=== PATIENT | male | born 1950 | race Caucasian/White ===

== ENCOUNTER 2016-11-23 09:00 | Inpatient (IN) | payer MEDICARE, BC ==
[~2016-11-23] VITALS: Ht 180.3 cm; Wt 105.9 kg
[2016-11-23] VITALS (22 sets, daily range): BP systolic 143–185; BP diastolic 66–84
[~2016-11-23 09:00] MED LIST: ALLO300T2 PO; CLOP75TA16; EVOL420W SQ; LEVO200T8 PO; OLME20TA14 PO; POTA10TA11 PO; ROSU5TAB PO; SUCR1TAB PO; TRIA1TAB94 PO; VIAG100 PO
[2016-11-23] MEDS ORDERED: AMLO10TA80 PO (09:34)
[2016-11-23] MEDS ORDERED: ASPI-1159 PO (09:34)
[2016-11-23] MEDS ORDERED: IPRATROPIUM/ALBUTEROL 0.5-3(2.5)MG/3ML NEB HHN PRN (10:45)
[2016-11-23] MEDS ORDERED: IODIXANOL 320MG/ML 100 ML BOTTLE IV ONE (11:11)
[2016-11-23] MEDS ORDERED: LIDOCAINE HCL 1% 20ML VIAL (Pyxis) INJ ONE (11:12)
[2016-11-23] MEDS ORDERED: MIDAZOLAM HCL 2 MG/2 ML VIAL ONE ×4 (11:23→12:24)
[2016-11-23] MEDS ORDERED: FENTANYL CITRATE/PF 50MCG/ML 2ML VIAL ONE ×2 (11:23→12:13)
[2016-11-23] MEDS ORDERED: ATROPINE SULFATE 0.1MG/ML 10ML DISP.SYRIN ONE (11:28)
[2016-11-23] MEDS ORDERED: HEPARIN SODIUM 1,000 UNIT/1ML VIAL IV ONE ×2 (12:14→12:21)
[2016-11-23] MEDS ORDERED: IOVERSOL 240MG/ML 100ML BOTTLE IV ONE (12:24)
[2016-11-23] MEDS ORDERED: CLOPIDOGREL 75MG TABLET ONE (12:37)
[2016-11-23] MEDS ORDERED: ASPIRIN 325MG TABLET ONE (12:37)
[2016-11-23] MEDS ORDERED: SUCRALFATE 1G TABLET PO SCH (13:00)
[2016-11-23] MEDS ORDERED: ZOLPIDEM TARTRATE 5MG TABLET PO PRN (13:00)
[2016-11-23] MEDS ORDERED: ACETAMINOPHEN 650MG/20.3ML UDC PO PRN (13:00)
[2016-11-23] MEDS ORDERED: AMLODIPINE 10MG TABLET PO NR (15:15)
[2016-11-23] MEDS: SUCRALFATE 1G TABLET PO SCH ×2 (17:00→21:39)
[2016-11-23] MEDS ORDERED: LOSARTAN POTASSIUM 50 MG TABLET PO NR (18:00)
[2016-11-23] MEDS ORDERED: BUDESONIDE 0.5MG/2ML NEB HHN SCH (18:00)
[2016-11-23] MEDS: IPRATROPIUM/ALBUTEROL 0.5-3(2.5)MG/3ML NEB HHN SCH (21:18)
[2016-11-24] VITALS (10 sets, daily range): BP systolic 125–167; BP diastolic 56–82
[2016-11-24] MEDS: IPRATROPIUM/ALBUTEROL 0.5-3(2.5)MG/3ML NEB HHN SCH (01:28)
[2016-11-24] MEDS: SUCRALFATE 1G TABLET PO SCH (06:13)
[2016-11-24 07:00] LABS: BASOPHILS % 0.8 % (0.0-2.0); EOSINOPHILS % 2.4 % (0.0-5.0); HEMATOCRIT. 40.1 % (42.0-52.0); HEMOGLOBIN. 13.7 g/dL (14.0-18.0); LYMPHOCYTES % 18.9 % (20.0-50.0); MEAN CORPUSCULAR HEMOGLOBIN 30.5 pg (28.0-32.0); MEAN CORPUSCULAR VOLUME 89.4 fL (80.0-94.0); MONOCYTES % 13.1 % (2.0-8.0); NEUTROPHILS % 64.8 % (40.0-76.0); PLATELET 195 x1000/uL (130-400); RED BLOOD CELL COUNT 4.49 mill/uL (4.7-6.1); RED CELL DISTRIBUTION WIDTH 15.3 % (11.6-14.6)
[2016-11-24] MEDS ORDERED: LEVOTHYROXINE SODIUM 200MCG TABLET PO SCH (07:00)
[2016-11-24 07:33] LABS: CARBON DIOXIDE 23 mEq/L (21-32); CHLORIDE 111 mEq/L (98-107)
[2016-11-24] MEDS ORDERED: AMLODIPINE 10MG TABLET PO SCH (09:00)
[2016-11-24] MEDS ORDERED: ALLOPURINOL 300 MG TABLET PO SCH (09:00)
[2016-11-24] MEDS ORDERED: CLOPIDOGREL 75MG TABLET PO SCH (09:00)
[2016-11-24] MEDS ORDERED: ASPIRIN 81MG EC TABLET PO SCH (09:00)
[2016-11-24] MEDS ORDERED: LOSARTAN POTASSIUM 100 MG TABLET PO SCH (09:00)
== END 2016-11-24 09:45 | disposition home or self-care (01) | DRG 247 ==
LOC: CCL 09:00 → 3WST 09:01
PROVIDERS: ADMIT Specialist; ATTEND Specialist
PROC: 4A023N7 Measurement of Cardiac Sampling and Pressure, Left Heart, Percutaneous Approach (ICD-10-PCS; principal; 2016-11-23)
PROC: 027034Z Dilation of Coronary Artery, One Artery with Drug-eluting Intraluminal Device, Percutaneous Approach (ICD-10-PCS; 2016-11-23)
PROC: B2111ZZ Fluoroscopy of Multiple Coronary Arteries using Low Osmolar Contrast (ICD-10-PCS; 2016-11-23)
PROC: B2181ZZ Fluoroscopy of Left Internal Mammary Bypass Graft using Low Osmolar Contrast (ICD-10-PCS; 2016-11-23)
PROC: B2121ZZ Fluoroscopy of Single Coronary Artery Bypass Graft using Low Osmolar Contrast (ICD-10-PCS; 2016-11-23)
DX: I25.110 Atherosclerotic heart disease of native coronary artery with unstable angina pectoris (principal); I11.0 Hypertensive heart disease with heart failure; I50.30 Unspecified diastolic (congestive) heart failure; E03.9 Hypothyroidism, unspecified; E78.5 Hyperlipidemia, unspecified; G47.33 Obstructive sleep apnea (adult) (pediatric); I35.8 Other nonrheumatic aortic valve disorders; I73.9 Peripheral vascular disease, unspecified; J45.909 Unspecified asthma, uncomplicated; K21.9 Gastro-esophageal reflux disease without esophagitis; E66.09 Other obesity due to excess calories; M10.9 Gout, unspecified; I25.2 Old myocardial infarction; Z79.02 Long term (current) use of antithrombotics/antiplatelets; Z95.1 Presence of aortocoronary bypass graft; Z95.5 Presence of coronary angioplasty implant and graft; Z90.49 Acquired absence of other specified parts of digestive tract; Z88.0 Allergy status to penicillin; Z68.32 Body mass index [BMI] 32.0-32.9, adult; Z71.3 Dietary counseling and surveillance; Z82.49 Family history of ischemic heart disease and other diseases of the circulatory system
CPT/HCPCS: 36415; 80048; 85025; 85347; 92928; 93005; 93454; 93459; C1760; C1769; C1887; C1893; J0461; J1644; J2250; J3010; J3490; J7620; J7626; Q9967

== ENCOUNTER → 2017-04-04 | Outpatient (CLI) | payer MEDICARE, BC ==
[~2017-04-04] MED LIST changes: +AMLO10TA80 PO; +ASPI-1159 PO; +BENZ-16 PO; +LOSA50TA20 PO; -OLME20TA14 PO; +PANT40TA4 PO
== END | disposition home or self-care (01) ==
LOC: US 07:51
PROVIDERS: ATTEND Internal Medicine Critical Care Medicine
DX: E05.90 Thyrotoxicosis, unspecified without thyrotoxic crisis or storm (principal)
CPT/HCPCS: 76536

== ENCOUNTER 2017-06-29 01:49 | Emergency (ER) | payer MEDICARE, BC ==
[~2017-06-29] VITALS: Ht 180.3 cm; Wt 101.0 kg
[~2017-06-29 01:49] MED LIST changes: -BENZ-16 PO; -LOSA50TA20 PO; -PANT40TA4 PO
[2017-06-29 02:20] VITALS: BP 112/63
== END 2017-06-29 03:15 | disposition home or self-care (01) ==
LOC: ER 01:49
DX: R05 Cough (principal); I10 Essential (primary) hypertension; E78.00 Pure hypercholesterolemia, unspecified; Z79.82 Long term (current) use of aspirin; Z88.0 Allergy status to penicillin; Z95.1 Presence of aortocoronary bypass graft; Z96.659 Presence of unspecified artificial knee joint; Z87.01 Personal history of pneumonia (recurrent)
CPT/HCPCS: 71045; 99283

== ENCOUNTER 2017-12-13 08:16 | Day surgery (SDC) | payer MEDICARE, BC ==
[~2017-12-13 08:16] MED LIST changes: -AMLO10TA80 PO; +BENZ-16 PO; -EVOL420W SQ; +LOSA50TA20 PO; +PANT40TA4 PO; -TRIA1TAB94 PO
[2017-12-13] MEDS ORDERED: IODIXANOL 320MG/ML 100 ML BOTTLE IV ONE (10:31)
[2017-12-13] MEDS ORDERED: LIDOCAINE HCL 1% 20ML VIAL (Pyxis) INJ ONE (10:31)
[2017-12-13 10:50] LABS: CHLORIDE 109 mEq/L (98-107)
[2017-12-13] MEDS ORDERED: MIDAZOLAM HCL 5 MG/5 ML VIAL ONE (10:56)
[2017-12-13] MEDS ORDERED: FENTANYL CITRATE/PF 50MCG/ML 2ML VIAL ONE (10:56)
[2017-12-13] MEDS ORDERED: DIPHENHYDRAMINE 50MG/ML VIAL ONE (11:09)
[2017-12-13] MEDS ORDERED: ONDANSETRON HCL 4MG/2ML INJ IV PRN (12:30)
[2017-12-13] MEDS ORDERED: ACETAMINOPHEN 325MG TABLET PO PRN (12:30)
[2017-12-13] MEDS ORDERED: HEPARIN SODIUM 1,000 UNIT/1ML VIAL IV ONE (12:42)
[2017-12-13] MEDS ORDERED: NICARDIPINE 100MCG/ML 10ML VIAL (CATH LAB) IV ONE (13:14)
[2017-12-13] MEDS ORDERED: NITROGLYCERIN 50MCG/ML 10ML VIAL (CATH LAB) IV ONE (13:14)
== END 2017-12-13 18:00 | disposition home or self-care (01) ==
LOC: CCL 08:16
PROVIDERS: ATTEND Specialist
DX: I25.118 Atherosclerotic heart disease of native coronary artery with other forms of angina pectoris (principal); K21.9 Gastro-esophageal reflux disease without esophagitis; E78.5 Hyperlipidemia, unspecified; E03.9 Hypothyroidism, unspecified; I11.0 Hypertensive heart disease with heart failure; I50.30 Unspecified diastolic (congestive) heart failure; G47.33 Obstructive sleep apnea (adult) (pediatric); I25.2 Old myocardial infarction; E78.00 Pure hypercholesterolemia, unspecified; J45.909 Unspecified asthma, uncomplicated; Z95.5 Presence of coronary angioplasty implant and graft; Z96.659 Presence of unspecified artificial knee joint; Z95.1 Presence of aortocoronary bypass graft; Z79.899 Other long term (current) drug therapy; Z79.82 Long term (current) use of aspirin; Z88.0 Allergy status to penicillin
CPT/HCPCS: 36415; 80048; 93459; 99152; 99153; C1760; C1769; C1887; C1893; J1200; J1644; J2250; J3010; J3490; Q9967

== ENCOUNTER → 2017-12-19 | Outpatient (CLI) | payer MEDICARE, BC | END | disposition home or self-care (01) | LOC: CT 08:49 | PROVIDERS: ATTEND Internal Medicine Critical Care Medicine | DX: K76.0 Fatty (change of) liver, not elsewhere classified (principal); M51.36 Other intervertebral disc degeneration, lumbar region; Z90.49 Acquired absence of other specified parts of digestive tract | CPT/HCPCS: 74150; 76700 ==

== ENCOUNTER 2018-10-17 07:43 | Day surgery (SDC) | payer MEDICARE, BC ==
[~2018-10-17] VITALS: Ht 180.3 cm; Wt 104.3 kg
[~2018-10-17 07:43] MED LIST changes: -ASPI-1159 PO; +ASPI-1393 PO; -CLOP75TA16; +CLOP75TA4; -LOSA50TA20 PO; +LOSA50TA41 PO
[2018-10-17] MEDS ORDERED: NIAC500T13 MT (09:07)
[2018-10-17] MEDS ORDERED: NIFE60TA64 MT (09:07)
[2018-10-17] MEDS ORDERED: COR6 MT (09:07)
[2018-10-17] MEDS ORDERED: SULF1TAB48 PO (09:07)
[2018-10-17] MEDS ORDERED: MYCO500T MT (09:07)
[2018-10-17] MEDS ORDERED: LEVO175T7 MT (09:07)
[2018-10-17] MEDS ORDERED: LIDOCAINE HCL 1% 20ML VIAL (Pyxis) INJ ONE (11:33)
[2018-10-17] MEDS ORDERED: IODIXANOL 320MG/ML 100 ML BOTTLE IV ONE ×2 (11:34→12:30)
[2018-10-17] MEDS ORDERED: MIDAZOLAM HCL 2 MG/2 ML VIAL ONE ×2 (11:41→12:33)
[2018-10-17] MEDS ORDERED: FENTANYL CITRATE/PF 50MCG/ML 2ML VIAL ONE (11:41)
[2018-10-17] MEDS ORDERED: IOHEXOL-300 100 ML BOTTLE ONE (12:32)
[2018-10-17] MEDS ORDERED: PROTAMINE SULFATE 10MG/ML VIAL 5ML IV ONE (12:56)
[2018-10-17] MEDS ORDERED: HEPARIN SODIUM 1,000 UNIT/1ML VIAL IV ONE (13:00)
[2018-10-17] MEDS ORDERED: ATROPINE SULFATE 1MG/10ML SYR IV PRN (13:15)
[2018-10-17] MEDS ORDERED: ONDANSETRON HCL 4MG/2ML INJ IV PRN (13:15)
[2018-10-17] MEDS ORDERED: ACETAMINOPHEN 325MG TABLET PO PRN (13:15)
== END 2018-10-17 19:00 | disposition home or self-care (01) ==
LOC: CCL 07:43
PROVIDERS: ATTEND Specialist
DX: I25.118 Atherosclerotic heart disease of native coronary artery with other forms of angina pectoris (principal); E78.5 Hyperlipidemia, unspecified; I11.0 Hypertensive heart disease with heart failure; I50.9 Heart failure, unspecified; I25.2 Old myocardial infarction; I42.9 Cardiomyopathy, unspecified; Z79.899 Other long term (current) drug therapy; Z79.82 Long term (current) use of aspirin; Z88.0 Allergy status to penicillin; Z95.1 Presence of aortocoronary bypass graft; Z95.5 Presence of coronary angioplasty implant and graft; Z82.49 Family history of ischemic heart disease and other diseases of the circulatory system
CPT/HCPCS: 85347; 93459; 99152; 99153; C1760; C1769; C1887; C1893; J1644; J2250; J2720; J3010; J3490; Q9967; G0500

== ENCOUNTER 2019-07-24 11:10 | Inpatient (IN) | payer MEDICARE, BC ==
[2019-07-24] VITALS (15 sets, daily range): BP systolic 99–144; BP diastolic 55–76
[~2019-07-24] VITALS: Ht 180.3 cm; Wt 115.7 kg
[~2019-07-24 11:10] MED LIST changes: -ASPI-1393 PO; +ASPI-1497 PO; -BENZ-16 PO; +COR6 MT; +HEPARIN SODIUM 1,000 UNIT/1ML VIAL IV ONE; +LEVO175T7 MT; -LEVO200T8 PO; +MYCO500T MT; +NIAC500T13 MT; +NIFE-32 MT; -PANT40TA4 PO; -POTA10TA11 PO; -ROSU5TAB PO; -SUCR1TAB PO; +SULF1TAB48 PO
[2019-07-24] MEDS ORDERED: UBID300C MT (12:11)
[2019-07-24] MEDS ORDERED: TURM500C6 MT (12:11)
[2019-07-24] MEDS ORDERED: LIDOCAINE HCL 1% 20ML VIAL (Pyxis) INJ ONE (12:28)
[2019-07-24] MEDS ORDERED: FENTANYL CITRATE/PF 50MCG/ML 2ML VIAL ONE (12:29)
[2019-07-24] MEDS ORDERED: IODIXANOL 320MG/ML 100 ML BOTTLE IV ONE ×3 (12:29→14:05)
[2019-07-24] MEDS ORDERED: MIDAZOLAM HCL 2 MG/2 ML VIAL ONE ×3 (12:29→14:14)
[2019-07-24] MEDS ORDERED: HEPARIN SODIUM 1,000 UNIT/1ML VIAL IV ONE (13:12)
[2019-07-24] MEDS ORDERED: ATROPINE SULFATE 0.1MG/ML 10ML DISP.SYRIN ONE (13:29)
[2019-07-24] MEDS ORDERED: ONDANSETRON HCL 4MG/2ML INJ IV PRN (14:30)
[2019-07-24] MEDS ORDERED: ATROPINE SULFATE 1MG/10ML SYR IV PRN (14:30)
[2019-07-24] MEDS ORDERED: ACETAMINOPHEN 325MG TABLET PO PRN (14:30)
[2019-07-24] MEDS ORDERED: CLOPIDOGREL 75MG TABLET ONE (14:38)
[2019-07-24] MEDS ORDERED: ASPIRIN 325MG TABLET ONE (14:38)
[2019-07-24] MEDS ORDERED: ZOLPIDEM TARTRATE 5MG TABLET PO PRN (15:15)
[2019-07-24] MEDS: CARVEDILOL 6.25 MG TABLET PO SCH (22:06)
[2019-07-24] MEDS: LOSARTAN POTASSIUM 50 MG TABLET PO SCH (22:07)
[2019-07-25 00:01] VITALS: BP 137/69
[2019-07-25 02:01] VITALS: BP 138/71
[2019-07-25 04:01] VITALS: BP 138/70
[2019-07-25 06:01] VITALS: BP 132/67
[2019-07-25 07:37] LABS: BASOPHILS % 0.6 % (0.0-2.0); EOSINOPHILS % 4.1 % (0.0-5.0); HEMATOCRIT. 40.8 % (42.0-52.0); HEMOGLOBIN. 14.1 g/dL (14.0-18.0); MEAN CORPUSCULAR HEMOGLOBIN 29.7 pg (28.0-32.0); MONOCYTES % 13.2 % (2.0-8.0); NEUTROPHILS % 68.1 % (40.0-76.0); PLATELET 186 x1000/uL (130-400); RED BLOOD CELL COUNT 4.75 mill/uL (4.7-6.1); RED CELL DISTRIBUTION WIDTH 14.9 % (11.6-14.6)
[2019-07-25 07:47] LABS: CHLORIDE 108 mEq/L (98-107)
[2019-07-25 07:50] VITALS: BP 149/61
[2019-07-25] MEDS: LOSARTAN POTASSIUM 50 MG TABLET PO SCH (08:57)
[2019-07-25] MEDS: CARVEDILOL 6.25 MG TABLET PO SCH (08:57)
[2019-07-25] MEDS ORDERED: ALLOPURINOL 300 MG TABLET PO SCH (09:00)
[2019-07-25] MEDS ORDERED: ASPIRIN 325MG TABLET PO SCH (09:00)
[2019-07-25] MEDS ORDERED: NIFEDIPINE XL 60MG TAB PO SCH (09:00)
[2019-07-25] MEDS ORDERED: CLOPIDOGREL 75MG TABLET PO SCH (09:00)
[2019-07-25 11:08] VITALS: BP 149/61
[2019-07-29 04:10] LABS: TESTOSTERONE FREE 9.4 pg/mL (6.6-18.1)
== END 2019-07-25 10:46 | disposition home or self-care (01) | DRG 247 ==
LOC: CCL 11:10 → 3WST 11:11
PROVIDERS: ADMIT Specialist; ATTEND Specialist
PROC: 027035Z Dilation of Coronary Artery, One Artery with Two Drug-eluting Intraluminal Devices, Percutaneous Approach (ICD-10-PCS; principal; 2019-07-24)
PROC: 4A023N7 Measurement of Cardiac Sampling and Pressure, Left Heart, Percutaneous Approach (ICD-10-PCS; 2019-07-24)
PROC: B2111ZZ Fluoroscopy of Multiple Coronary Arteries using Low Osmolar Contrast (ICD-10-PCS; 2019-07-24)
PROC: B2181ZZ Fluoroscopy of Left Internal Mammary Bypass Graft using Low Osmolar Contrast (ICD-10-PCS; 2019-07-24)
PROC: B2131ZZ Fluoroscopy of Multiple Coronary Artery Bypass Grafts using Low Osmolar Contrast (ICD-10-PCS; 2019-07-24)
DX: I21.9 Acute myocardial infarction, unspecified (principal); I50.32 Chronic diastolic (congestive) heart failure; I25.110 Atherosclerotic heart disease of native coronary artery with unstable angina pectoris; I11.0 Hypertensive heart disease with heart failure; E78.5 Hyperlipidemia, unspecified; E03.9 Hypothyroidism, unspecified; D63.8 Anemia in other chronic diseases classified elsewhere; E11.51 Type 2 diabetes mellitus with diabetic peripheral angiopathy without gangrene; E66.09 Other obesity due to excess calories; I49.5 Sick sinus syndrome; M10.9 Gout, unspecified; K21.9 Gastro-esophageal reflux disease without esophagitis; G47.33 Obstructive sleep apnea (adult) (pediatric); J45.909 Unspecified asthma, uncomplicated; I25.2 Old myocardial infarction; Z95.5 Presence of coronary angioplasty implant and graft; Z95.0 Presence of cardiac pacemaker; Z95.1 Presence of aortocoronary bypass graft; Z90.49 Acquired absence of other specified parts of digestive tract; Z88.0 Allergy status to penicillin; Z79.899 Other long term (current) drug therapy; Z68.35 Body mass index [BMI] 35.0-35.9, adult
CPT/HCPCS: 36415; 80048; 84153; 84402; 84403; 85025; 92928; 93005; 93459; C1725; C1760; C1769; C1874; C1887; C1893; J0461; J1644; J2250; J3010; J3490; Q9967; G0103; U0003-CS

== ENCOUNTER → 2020-01-02 | Outpatient (CLI) | payer MEDICARE ==
[~2020-01-02] MED LIST changes: -HEPARIN SODIUM 1,000 UNIT/1ML VIAL IV ONE; +TURM500C6 MT; +UBID300C MT
== END | disposition home or self-care (01) ==
LOC: MRI 08:37
PROVIDERS: ATTEND Internal Medicine Critical Care Medicine
DX: I67.82 Cerebral ischemia (principal); M50.221 Other cervical disc displacement at C4-C5 level; M50.223 Other cervical disc displacement at C6-C7 level; M48.02 Spinal stenosis, cervical region
CPT/HCPCS: 70551; 72141

== ENCOUNTER 2020-05-15 13:17 | Inpatient (IN) | payer MEDICARE, BC ==
[~2020-05-15] VITALS: Ht 180.3 cm; Wt 102.1 kg
[~2020-05-15 13:17] MED LIST changes: +CLOP-31; -CLOP75TA4; -NIAC500T13 MT; +[UNRECOGNIZED DRUG - CODE] MT
[2020-05-15] MEDS ORDERED: ACETAMINOPHEN 650MG/20.3ML UDC GT PRN (13:30)
[2020-05-15] MEDS ORDERED: IPRATROPIUM/ALBUTEROL 0.5-3(2.5)MG/3ML NEB NEB PRN (13:30)
[2020-05-15] MEDS ORDERED: ONDANSETRON HCL 4MG/2ML INJ IV PRN (13:30)
[2020-05-15] MEDS ORDERED: LORAZEPAM 0.5MG TABLET PO PRN (13:30)
[2020-05-15] MEDS ORDERED: DOCUSATE SODIUM 100MG CAPSULE PO PRN (13:30)
[2020-05-15 13:39] VITALS: BP 147/62
[2020-05-15 13:40] VITALS: BP 147/62
[2020-05-15 15:46] LABS: HEMATOCRIT. 43.8 % (42.0-52.0); HEMOGLOBIN. 13.9 g/dL (14.0-18.0); MEAN CORPUSCULAR HEMOGLOBIN 27.3 pg (28.0-32.0); MEAN CORPUSCULAR VOLUME 85.7 fL (80.0-94.0); MEAN PLATELET VOLUME 8.5 fl (7.4-10.4); PLATELET 201 x1000/uL (130-400); RED BLOOD CELL COUNT 5.11 mill/uL (4.7-6.1); RED CELL DISTRIBUTION WIDTH 15.7 % (11.6-14.6)
[2020-05-15 15:47] LABS: PROTHROMBIN TIME 10.7 sec (9.6-11.0)
[2020-05-15 15:51] LABS: CHLORIDE 112 mEq/L (98-107)
[2020-05-15 15:58] LABS: CREATINE KINASE 58 IU/L (39-308)
[2020-05-15 15:59] LABS: CREATINE KINASE MB FRACTION 1.2 ng/mL (0.5-3.6)
[2020-05-15 16:00] VITALS: BP 141/67
[2020-05-15 16:04] LABS: T4 FREE 1.47 ng/dL (0.76-1.46)
[2020-05-15 16:13] LABS: CLARITY URINE CLEAR (CLEAR); COLOR URINE YELLOW (YELLOW); KETONES URINE NEGATIVE (NEGATIVE); LEUKOCYTE ESTERASE URINE NEGATIVE (NEGATIVE); NITRITE URINE NEGATIVE (NEGATIVE); OCCULT BLOOD URINE NEGATIVE (NEGATIVE); PROTEIN URINE NEGATIVE (NEGATIVE); SPECIFIC GRAVITY URINE 1.013 (1.005-1.030); UROBILINOGEN URINE 0.2 E.U./dL (0.2-1.0)
[2020-05-15] MEDS ORDERED: CARVEDILOL 6.25 MG TABLET PO SCH (17:00)
[2020-05-15] MEDS: NIFEDIPINE XL 60MG TAB PO SCH (17:28)
[2020-05-15] MEDS: LOSARTAN POTASSIUM 50 MG TABLET PO SCH (17:28)
[2020-05-15] MEDS: MONTELUKAST SODIUM 10MG TABLET PO SCH (17:28)
[2020-05-15 18:00] VITALS: BP 166/69
[2020-05-15] MEDS ORDERED: POTASSIUM CHLORIDE 20MEQ TABLET SR PO NR (18:30)
[2020-05-15 18:37] LABS: PLATELET ESTIMATE NORMAL
[2020-05-15] MEDS ORDERED: IOHEXOL-350 100 ML BOTTLE ONE (19:24)
[2020-05-15 20:00] VITALS: BP 178/91
[2020-05-15] MEDS: CARVEDILOL 6.25 MG TABLET PO SCH (20:15)
[2020-05-15] MEDS: ENOXAPARIN 30MG/0.3ML SYR SUBCUT SCH (20:16)
[2020-05-15] MEDS ORDERED: LOSARTAN POTASSIUM 25 MG TABLET PO SCH (21:00)
[2020-05-15 22:00] VITALS: BP 162/72
[2020-05-15 23:40] LABS: CREATINE KINASE MB FRACTION 1.2 ng/mL (0.5-3.6)
[2020-05-16] VITALS (12 sets, daily range): BP systolic 107–147; BP diastolic 49–79
[2020-05-16] MEDS: ACETAMINOPHEN 325MG TABLET PO PRN ×2 (01:42→21:03)
[2020-05-16 08:34] LABS: HEMATOCRIT. 45.8 % (42.0-52.0); HEMOGLOBIN. 15.1 g/dL (14.0-18.0); MEAN CORPUSCULAR HEMOGLOBIN 28.2 pg (28.0-32.0); MEAN CORPUSCULAR VOLUME 85.4 fL (80.0-94.0); MEAN PLATELET VOLUME 8.5 fl (7.4-10.4); PLATELET 204 x1000/uL (130-400); RED BLOOD CELL COUNT 5.36 mill/uL (4.7-6.1); RED CELL DISTRIBUTION WIDTH 15.5 % (11.6-14.6)
[2020-05-16 08:47] LABS: CHLORIDE 112 mEq/L (98-107)
[2020-05-16 08:54] LABS: LDL CHOLESTEROL 132 mg/dL (5-100)
[2020-05-16 08:56] LABS: HDL CHOLESTEROL 35 mg/dL (40-59)
[2020-05-16] MEDS ORDERED: CLOPIDOGREL 75MG TABLET PO SCH (09:00)
[2020-05-16] MEDS ORDERED: ASPIRIN 81MG EC TABLET PO SCH (09:00)
[2020-05-16] MEDS ORDERED: AMLODIPINE 5MG TABLET PO SCH (09:00)
[2020-05-16] MEDS: LOSARTAN POTASSIUM 50 MG TABLET PO SCH ×2 (09:08→17:43)
[2020-05-16] MEDS: NIFEDIPINE XL 60MG TAB PO SCH (09:08)
[2020-05-16] MEDS: CARVEDILOL 6.25 MG TABLET PO SCH (09:08)
[2020-05-16] MEDS: ASPIRIN 81MG EC TABLET PO SCH (09:08)
[2020-05-16] MEDS: CLOPIDOGREL 75MG TABLET PO SCH (09:09)
[2020-05-16] MEDS: ALLOPURINOL 300 MG TABLET PO SCH (09:09)
[2020-05-16] MEDS: ENOXAPARIN 30MG/0.3ML SYR SUBCUT SCH ×2 (09:10→21:03)
[2020-05-16] MEDS: SULFAMETHOXAZOLE/TRIMETHOPRIM 800/160MG TABLET PO SCH ×2 (13:54→22:32)
[2020-05-16] MEDS: MONTELUKAST SODIUM 10MG TABLET PO SCH (17:43)
[2020-05-16] MEDS: ATORVASTATIN CALCIUM 40MG TABLET PO SCH (20:39)
[2020-05-16] MEDS: CARVEDILOL 12.5MG TABLET PO SCH (20:42)
[2020-05-16 22:05] LABS: PLATELET ESTIMATE NORMAL
[2020-05-17] VITALS (11 sets, daily range): BP systolic 110–144; BP diastolic 45–77
[2020-05-17] MEDS: ALLOPURINOL 300 MG TABLET PO SCH (09:01)
[2020-05-17] MEDS: NIFEDIPINE XL 60MG TAB PO SCH (09:02)
[2020-05-17] MEDS: LOSARTAN POTASSIUM 50 MG TABLET PO SCH ×2 (09:02→17:41)
[2020-05-17] MEDS: ASPIRIN 81MG EC TABLET PO SCH (09:02)
[2020-05-17] MEDS: CARVEDILOL 12.5MG TABLET PO SCH ×2 (09:02→21:52)
[2020-05-17] MEDS: CLOPIDOGREL 75MG TABLET PO SCH (09:02)
[2020-05-17] MEDS: ENOXAPARIN 30MG/0.3ML SYR SUBCUT SCH ×2 (09:03→21:52)
[2020-05-17] MEDS: SULFAMETHOXAZOLE/TRIMETHOPRIM 800/160MG TABLET PO SCH ×2 (09:06→21:50)
[2020-05-17] MEDS: MONTELUKAST SODIUM 10MG TABLET PO SCH (17:41)
[2020-05-17] MEDS: ATORVASTATIN CALCIUM 40MG TABLET PO SCH (21:52)
[2020-05-18] VITALS (8 sets, daily range): BP systolic 103–141; BP diastolic 47–63
[2020-05-18] MEDS: ACETAMINOPHEN 325MG TABLET PO PRN (00:02)
[2020-05-18] MEDS: ENOXAPARIN 30MG/0.3ML SYR SUBCUT SCH (08:42)
[2020-05-18] MEDS: LOSARTAN POTASSIUM 50 MG TABLET PO SCH (08:42)
[2020-05-18] MEDS: ALLOPURINOL 300 MG TABLET PO SCH (08:42)
[2020-05-18] MEDS: NIFEDIPINE XL 60MG TAB PO SCH (08:44)
[2020-05-18] MEDS: SULFAMETHOXAZOLE/TRIMETHOPRIM 800/160MG TABLET PO SCH (08:44)
[2020-05-18] MEDS: CLOPIDOGREL 75MG TABLET PO SCH (08:44)
[2020-05-18] MEDS: CARVEDILOL 12.5MG TABLET PO SCH (08:44)
[2020-05-18] MEDS: ASPIRIN 81MG EC TABLET PO SCH (08:45)
[2020-05-19 10:09] LABS: ANTI-NUCLEAR ANTIBODIES DIRECT Negative (Negative)
[2020-05-20 13:06] LABS: ATYPICAL P-ANCA <1:20 titer (Neg:<1:20); CYTOPLASMIC C-ANCA <1:20 titer (Neg:<1:20); PERINUCLEAR P-ANCA <1:20 titer (Neg:<1:20)
[2020-05-20 14:08] LABS: ANTI-CARDIOLIPIN AB IGG < 9 GPL U/mL (0-14); ANTI-CARDIOLIPIN AB IGM 12 MPL U/mL (0-12); ANTI-MYELOPEROXIDASE AB < 9.0 U/mL (0.0-9.0); ANTI-PROTEINASE 3 ABS < 3.5 U/mL (0.0-3.5)
== END 2020-05-18 17:15 | disposition home or self-care (01) | DRG 193 ==
LOC: 3WST 13:17
PROVIDERS: ADMIT Internal Medicine Critical Care Medicine; ATTEND Internal Medicine Critical Care Medicine
DX: J18.9 Pneumonia, unspecified organism (principal); J96.91 Respiratory failure, unspecified with hypoxia; I50.32 Chronic diastolic (congestive) heart failure; D63.8 Anemia in other chronic diseases classified elsewhere; E03.9 Hypothyroidism, unspecified; E11.43 Type 2 diabetes mellitus with diabetic autonomic (poly)neuropathy; E11.51 Type 2 diabetes mellitus with diabetic peripheral angiopathy without gangrene; E78.5 Hyperlipidemia, unspecified; G47.33 Obstructive sleep apnea (adult) (pediatric); E66.09 Other obesity due to excess calories; J84.10 Pulmonary fibrosis, unspecified; M10.9 Gout, unspecified; K21.9 Gastro-esophageal reflux disease without esophagitis; I49.5 Sick sinus syndrome; I11.0 Hypertensive heart disease with heart failure; R62.7 Adult failure to thrive; Z86.16 Personal history of COVID-19; I25.10 Atherosclerotic heart disease of native coronary artery without angina pectoris; I25.2 Old myocardial infarction; J45.909 Unspecified asthma, uncomplicated; Z79.02 Long term (current) use of antithrombotics/antiplatelets; Z79.82 Long term (current) use of aspirin; Z79.899 Other long term (current) drug therapy; Z95.5 Presence of coronary angioplasty implant and graft; Z83.3 Family history of diabetes mellitus; Z95.0 Presence of cardiac pacemaker; Z95.1 Presence of aortocoronary bypass graft; Z90.49 Acquired absence of other specified parts of digestive tract; Z68.31 Body mass index [BMI] 31.0-31.9, adult; Z88.0 Allergy status to penicillin
CPT/HCPCS: 36415; 71275; 80048; 80053; 80061; 81003; 82040; 82550; 82553; 83520; 83880; 84153; 84402; 84439; 84443; 84481; 84484; 85025; 86038; 86147; 86256; 93005; 93306; 93970; 97162; 97165; J1650; Q9967; G0103

== ENCOUNTER → 2020-07-14 | Outpatient (CLI) | payer MEDICARE | END | disposition home or self-care (01) | LOC: CT 08:36 | PROVIDERS: ATTEND Internal Medicine Critical Care Medicine | DX: R42 Dizziness and giddiness (principal); Z90.89 Acquired absence of other organs ==

== ENCOUNTER → 2021-03-31 | Outpatient (CLI) | payer MEDICARE, BC ==
[~2021-03-31] MED LIST changes: +CARV6.2548 PO; +CLOP75TA33 PO; +EVOL140P3 SQ; +GADOTERATE MEGLUMINE 5 MMOL/10 ML VIAL IV ONE; +LEVO150C2 PO; +MONT4TAB18 PO; +NIAC-49 MT; +NIFE-32 PO; -[UNRECOGNIZED DRUG - CODE] MT
== END | disposition home or self-care (01) ==
LOC: MRI 08:26
PROVIDERS: ATTEND Internal Medicine Critical Care Medicine
DX: I67.82 Cerebral ischemia (principal); R42 Dizziness and giddiness; H90.42 Sensorineural hearing loss, unilateral, left ear, with unrestricted hearing on the contralateral side; Z96.652 Presence of left artificial knee joint
CPT/HCPCS: 70553; 73560; A9577

== ENCOUNTER → 2021-05-07 | Day surgery (SDC) | payer MEDICARE, BC ==
[~2021-05-07] VITALS: Ht 180.3 cm; Wt 99.8 kg
[~2021-05-07] MED LIST changes: +CYCLOPHOSPHAMIDE IV ONE; +DEXT 5% IV ONE; +DIPHENHYDRAMINE 50MG CAPSULE PO NR; +DIPHENHYDRAMINE 50MG/ML VIAL ONE; -GADOTERATE MEGLUMINE 5 MMOL/10 ML VIAL IV ONE; +ONDANSETRON 4MG/5ML UDC PO NR; +ONDANSETRON HCL 4MG/2ML INJ ONE; +SODIUM CHLORIDE 0.9% 500 ML IV NR; +WATER IV ONE
[2021-05-07 09:18] LABS: BASOPHILS % 0.9 % (0.0-2.0); EOSINOPHILS % 2.2 % (0.0-5.0); HEMATOCRIT. 34.4 % (42.0-52.0); HEMOGLOBIN. 11.4 g/dL (14.0-18.0); LYMPHOCYTES % 16.2 % (20.0-50.0); MEAN CORPUSCULAR HEMOGLOBIN 29.6 pg (28.0-32.0); MEAN CORPUSCULAR VOLUME 89.7 fL (80.0-94.0); MEAN PLATELET VOLUME 7.4 fl (7.4-10.4); MONOCYTES % 12.5 % (2.0-8.0); NEUTROPHILS % 68.2 % (40.0-76.0); PLATELET 246 x1000/uL (130-400); RED BLOOD CELL COUNT 3.84 mill/uL (4.7-6.1); RED CELL DISTRIBUTION WIDTH 16.5 % (11.6-14.6)
== END | disposition home or self-care (01) ==
LOC: OR 08:56
PROVIDERS: ATTEND Internal Medicine Critical Care Medicine
DX: J84.9 Interstitial pulmonary disease, unspecified (principal); J84.10 Pulmonary fibrosis, unspecified; I25.10 Atherosclerotic heart disease of native coronary artery without angina pectoris; I10 Essential (primary) hypertension; K21.9 Gastro-esophageal reflux disease without esophagitis; J45.909 Unspecified asthma, uncomplicated; G47.33 Obstructive sleep apnea (adult) (pediatric); Z79.82 Long term (current) use of aspirin; Z79.899 Other long term (current) drug therapy; Z98.890 Other specified postprocedural states; Z88.0 Allergy status to penicillin; Z72.89 Other problems related to lifestyle
CPT/HCPCS: 36415; 80048; 85025; 96365; 96366; J7040; J7060; J9070; J1200; J2405; Q0163

== ENCOUNTER 2022-04-17 15:07 | Emergency (ER) | payer MEDICARE, BC ==
[~2022-04-17] VITALS: Ht 180.3 cm; Wt 110.0 kg
[~2022-04-17 15:07] MED LIST changes: -CYCLOPHOSPHAMIDE IV ONE; -DEXT 5% IV ONE; -DIPHENHYDRAMINE 50MG CAPSULE PO NR; -DIPHENHYDRAMINE 50MG/ML VIAL ONE; -MONT4TAB18 PO; +MONT4TAB20 PO; -ONDANSETRON 4MG/5ML UDC PO NR; -ONDANSETRON HCL 4MG/2ML INJ ONE; -SODIUM CHLORIDE 0.9% 500 ML IV NR; -WATER IV ONE
[2022-04-17] MEDS ORDERED: KETOROLAC 60MG/2ML VIAL IM ONE (15:30)
[2022-04-17 16:51] VITALS: BP 178/57
[2022-04-17] MEDS ORDERED: CYCL10TA21 MT (17:11)
[2022-04-17] MEDS ORDERED: IBUP-2029 MT (17:11)
== END 2022-04-17 18:02 | disposition home or self-care (01) ==
LOC: ER 15:07
DX: M54.50 Low back pain, unspecified (principal); M48.061 Spinal stenosis, lumbar region without neurogenic claudication; Z98.890 Other specified postprocedural states; Z79.899 Other long term (current) drug therapy; Z88.0 Allergy status to penicillin
CPT/HCPCS: 72131; 93005; 96372; 99285; J1885

== ENCOUNTER 2022-08-14 17:33 | Emergency (ER) | payer MEDICARE, BC ==
[~2022-08-14] VITALS: Ht 180.3 cm; Wt 101.0 kg
[~2022-08-14 17:33] MED LIST changes: +CYCL10TA21 MT; +IBUP-2029 MT; -UBID300C MT; +UBID300C3 MT
[2022-08-14 18:15] VITALS: BP 119/64
[2022-08-14] MEDS ORDERED: KETOROLAC 60MG/2ML VIAL IM ONE (18:15)
[2022-08-14] MEDS ORDERED: TOPUD MT (19:43)
== END 2022-08-14 20:57 | disposition home or self-care (01) ==
LOC: ER 17:58
DX: M54.50 Low back pain, unspecified (principal); G89.29 Other chronic pain; I25.10 Atherosclerotic heart disease of native coronary artery without angina pectoris; Z88.0 Allergy status to penicillin; Z79.82 Long term (current) use of aspirin
CPT/HCPCS: 96372; 99283; J1885

== ENCOUNTER → 2022-08-23 | Outpatient (CLI) | payer MEDICARE, BC ==
[~2022-08-23] MED LIST changes: +TOPUD MT
== END | disposition home or self-care (01) ==
LOC: MRI 08:32
PROVIDERS: ATTEND Specialist
DX: M47.817 Spondylosis without myelopathy or radiculopathy, lumbosacral region (principal); M54.51 Vertebrogenic low back pain; M48.07 Spinal stenosis, lumbosacral region; M43.16 Spondylolisthesis, lumbar region; M51.36 Other intervertebral disc degeneration, lumbar region
CPT/HCPCS: 72148

== ENCOUNTER → 2022-10-19 | Outpatient (CLI) | payer MEDICARE, BC | END | disposition home or self-care (01) | LOC: MRI 10:35 | PROVIDERS: ATTEND Specialist | DX: M51.27 Other intervertebral disc displacement, lumbosacral region (principal); M48.07 Spinal stenosis, lumbosacral region; M47.816 Spondylosis without myelopathy or radiculopathy, lumbar region; I62.02 Nontraumatic subacute subdural hemorrhage | CPT/HCPCS: 72148 ==

== ENCOUNTER → 2022-11-17 | Outpatient (CLI) | payer MEDICARE, BC | END | disposition home or self-care (01) | LOC: MRI 09:30 | PROVIDERS: ATTEND Specialist | DX: M51.37 Other intervertebral disc degeneration, lumbosacral region (principal); M51.27 Other intervertebral disc displacement, lumbosacral region; M71.38 Other bursal cyst, other site; M46.07 Spinal enthesopathy, lumbosacral region; M48.07 Spinal stenosis, lumbosacral region | CPT/HCPCS: 72148 ==

== ENCOUNTER → 2022-11-24 | Day surgery (SDC) | payer MEDICARE, BC ==
[~2022-11-24] VITALS: Ht 180.3 cm; Wt 99.8 kg
[~2022-11-24] MED LIST changes: +ACETAMINOPHEN 325MG TABLET PO PRN; +COR25 MT; +FAMOTIDINE 20MG/2ML VIAL IV ONE; +HYDRALAZINE 20MG/ML VIAL IV NR; +LEVO137T2 MT; +LIDOCAINE HCL 1% 20ML VIAL (Pyxis) INJ ONE; +MIDAZOLAM HCL 2 MG/2 ML VIAL ONE; +OLME40TA18 MT; +ONDANSETRON HCL 4MG/2ML INJ IV PRN; +P20 MT
== END | disposition home or self-care (01) ==
LOC: CCL 06:41
PROVIDERS: ATTEND Specialist
DX: R07.9 Chest pain, unspecified (principal); I25.110 Atherosclerotic heart disease of native coronary artery with unstable angina pectoris; I12.9 Hypertensive chronic kidney disease with stage 1 through stage 4 chronic kidney disease, or unspecified chronic kidney disease; E11.22 Type 2 diabetes mellitus with diabetic chronic kidney disease; N18.9 Chronic kidney disease, unspecified; K21.9 Gastro-esophageal reflux disease without esophagitis; I25.2 Old myocardial infarction; G47.33 Obstructive sleep apnea (adult) (pediatric); E78.5 Hyperlipidemia, unspecified; E03.9 Hypothyroidism, unspecified; Z79.84 Long term (current) use of oral hypoglycemic drugs; Z79.899 Other long term (current) drug therapy; Z79.82 Long term (current) use of aspirin; Z86.16 Personal history of COVID-19; Z88.0 Allergy status to penicillin; Z90.49 Acquired absence of other specified parts of digestive tract; Z95.0 Presence of cardiac pacemaker; Z95.1 Presence of aortocoronary bypass graft; Z98.890 Other specified postprocedural states
CPT/HCPCS: 93459; J3010; Q9967; J1200; J3490 ×3; J1644 ×2; J0360; J2250; Z7610 ×5; 99152; 99153; G0500

== ENCOUNTER → 2022-12-08 | Outpatient (CLI) | payer MEDICARE, BC ==
[~2022-12-08] MED LIST changes: -ACETAMINOPHEN 325MG TABLET PO PRN; -FAMOTIDINE 20MG/2ML VIAL IV ONE; -HYDRALAZINE 20MG/ML VIAL IV NR; -LIDOCAINE HCL 1% 20ML VIAL (Pyxis) INJ ONE; -MIDAZOLAM HCL 2 MG/2 ML VIAL ONE; -ONDANSETRON HCL 4MG/2ML INJ IV PRN
== END | disposition home or self-care (01) ==
LOC: MRI 09:27
DX: S89.82XA Other specified injuries of left lower leg, initial encounter (principal); M17.0 Bilateral primary osteoarthritis of knee; X58.XXXA Exposure to other specified factors, initial encounter; Y93.89 Activity, other specified; Y92.89 Other specified places as the place of occurrence of the external cause; Y99.8 Other external cause status
CPT/HCPCS: 73721

== ENCOUNTER → 2023-08-23 | Outpatient (CLI) | payer MEDICARE, BC | END | disposition home or self-care (01) | LOC: MRI 08-18 09:07 | PROVIDERS: ATTEND Internal Medicine Critical Care Medicine | DX: S30.0XXA Contusion of lower back and pelvis, initial encounter (principal); M51.37 Other intervertebral disc degeneration, lumbosacral region; M48.07 Spinal stenosis, lumbosacral region; X58.XXXA Exposure to other specified factors, initial encounter; Y93.89 Activity, other specified; Y92.89 Other specified places as the place of occurrence of the external cause; Y99.8 Other external cause status | CPT/HCPCS: 72148 ==

== ENCOUNTER → 2023-10-06 | Day surgery (SDC) | payer MEDICARE, BC ==
[~2023-10-06] VITALS: Ht 180.3 cm; Wt 93.9 kg
[~2023-10-06] MED LIST changes: +ACETAMINOPHEN 325MG TABLET PO PRN; +ALEN70TA79 PO; -ALLO300T2 PO; +ATROPINE SULFATE 1MG/10ML SYR IV PRN; +CARV12.545 PO; -CARV6.2548 PO; +CHOL-4 PO; -CLOP-31; -CLOP75TA33 PO; -COR25 MT; -COR6 MT; -CYCL10TA21 MT; -EVOL140P3 SQ; +FAMO20TA8 PO; +FENTANYL CITRATE/PF 50MCG/ML 2ML VIAL ONE; +HEPARIN 1000 UNITS/ML 10ML ONE; +HYDR200T35 PO; +IODIXANOL 320MG/ML 100 ML BOTTLE IV ONE; -LEVO150C2 PO; -LEVO175T7 MT; +LIDOCAINE HCL 1% 20ML VIAL ONE; -LOSA50TA41 PO; +MIDAZOLAM HCL 2 MG/2 ML VIAL ONE; -MONT4TAB20 PO; +MULT-1146 PO; +MYCO250C PO; -MYCO500T MT; -NIAC-49 MT; -NIFE-32 MT; -NIFE-32 PO; -OLME40TA18 MT; +ONDANSETRON HCL 4MG/2ML INJ IV PRN; -P20 MT; +PRED10TA PO; -SULF1TAB48 PO; -TURM500C6 MT; -UBID300C3 MT; -VIAG100 PO
[2023-10-06] MEDS: SODIUM CHLORIDE 0.45% 500 ML IV SCH (09:22)
== END | disposition home or self-care (01) ==
LOC: CCL 06:45
PROVIDERS: ATTEND Specialist
DX: I25.10 Atherosclerotic heart disease of native coronary artery without angina pectoris (principal); I10 Essential (primary) hypertension; I25.2 Old myocardial infarction; E78.5 Hyperlipidemia, unspecified; N28.9 Disorder of kidney and ureter, unspecified; Z79.82 Long term (current) use of aspirin; Z79.899 Other long term (current) drug therapy; Z88.0 Allergy status to penicillin; Z98.890 Other specified postprocedural states; Z95.1 Presence of aortocoronary bypass graft
CPT/HCPCS: 93459; C1893; C1769 ×3; J3010; Q9967; J1644 ×2; J3490; J2250; C1887 ×2; 99152; 99153; G0500

== ENCOUNTER → 2024-05-31 | Day surgery (SDC) | payer MEDICARE, BC ==
[~2024-05-31] VITALS: Ht 180.3 cm; Wt 97.5 kg
[~2024-05-31] MED LIST changes: -ALEN70TA79 PO; +ALLO100T PO; -ATROPINE SULFATE 1MG/10ML SYR IV PRN; +AZIT250T12 PO; +CALC300T4 PO; +CARB200T6 PO; -CHOL-4 PO; +CLOP-31 PO; -FAMO20TA8 PO; -IBUP-2029 MT; -LEVO137T2 MT; +LEVO150T8 PO; -MULT-1146 PO; -MYCO250C PO; +MYCO360T PO; +NINT100C PO; +POTA-194 PO; +RANO500T6 PO; -TOPUD MT
== END | disposition home or self-care (01) ==
LOC: CCL 06:26
PROVIDERS: ATTEND Specialist
DX: I73.9 Peripheral vascular disease, unspecified (principal); I12.9 Hypertensive chronic kidney disease with stage 1 through stage 4 chronic kidney disease, or unspecified chronic kidney disease; N18.9 Chronic kidney disease, unspecified; E03.9 Hypothyroidism, unspecified; E78.5 Hyperlipidemia, unspecified; G47.33 Obstructive sleep apnea (adult) (pediatric); I25.10 Atherosclerotic heart disease of native coronary artery without angina pectoris; I25.2 Old myocardial infarction; I49.5 Sick sinus syndrome; J84.10 Pulmonary fibrosis, unspecified; Z79.02 Long term (current) use of antithrombotics/antiplatelets; Z79.52 Long term (current) use of systemic steroids; Z79.624 Long term (current) use of inhibitors of nucleotide synthesis; Z79.82 Long term (current) use of aspirin; Z79.890 Hormone replacement therapy; Z79.899 Other long term (current) drug therapy; Z82.3 Family history of stroke; Z82.49 Family history of ischemic heart disease and other diseases of the circulatory system; Z88.0 Allergy status to penicillin; Z90.49 Acquired absence of other specified parts of digestive tract; Z95.0 Presence of cardiac pacemaker; Z95.1 Presence of aortocoronary bypass graft; Z95.5 Presence of coronary angioplasty implant and graft; Z98.890 Other specified postprocedural states
CPT/HCPCS: 75710; 36247; C1893; C1725; J3010; Q9967; J1644 ×2; J3490; J2250; C1769; 99152; G0500

== ENCOUNTER → 2024-07-19 | Day surgery (SDC) | payer MEDICARE, BC ==
[~2024-07-19] VITALS: Ht 180.3 cm; Wt 97.5 kg
[~2024-07-19] MED LIST changes: +AMOX1TAB16 PO; +ATROPINE SULFATE 1MG/10ML SYR IV PRN; -AZIT250T12 PO; -CALC300T4 PO; +GABA-1180 PO; +IODIXANOL 320 MG/ML 150ML BOTTLE IV ONE; -IODIXANOL 320MG/ML 100 ML BOTTLE IV ONE; +MORPHINE SULFATE 2 MG/ML INJ (NOT FOR IM USE) IV PRN; +NALOXONE HCL 0.4MG/ML VIAL IV PRN; +PREG75CA PO
[2024-07-19] MEDS: MORPHINE SULFATE 2 MG/ML INJ (NOT FOR IM USE) IV PRN ×2 (07:53→13:21)
[2024-07-19] MEDS: SODIUM CHLORIDE 0.45% 500 ML IV ONE (07:55)
[2024-07-19 14:15] VITALS: BP 124/50; PULSE 71; RESP 21
== END | disposition home or self-care (01) ==
LOC: CCL 06:29
PROVIDERS: ATTEND Specialist
DX: I70.222 Atherosclerosis of native arteries of extremities with rest pain, left leg (principal); E03.9 Hypothyroidism, unspecified; E78.5 Hyperlipidemia, unspecified; G47.33 Obstructive sleep apnea (adult) (pediatric); I12.9 Hypertensive chronic kidney disease with stage 1 through stage 4 chronic kidney disease, or unspecified chronic kidney disease; I25.10 Atherosclerotic heart disease of native coronary artery without angina pectoris; I25.2 Old myocardial infarction; I49.5 Sick sinus syndrome; I96 Gangrene, not elsewhere classified; J84.10 Pulmonary fibrosis, unspecified; Z79.02 Long term (current) use of antithrombotics/antiplatelets; Z79.52 Long term (current) use of systemic steroids; Z79.624 Long term (current) use of inhibitors of nucleotide synthesis; Z79.82 Long term (current) use of aspirin; Z79.890 Hormone replacement therapy; Z79.899 Other long term (current) drug therapy; Z82.49 Family history of ischemic heart disease and other diseases of the circulatory system; Z88.0 Allergy status to penicillin; Z90.49 Acquired absence of other specified parts of digestive tract; Z95.0 Presence of cardiac pacemaker; Z95.1 Presence of aortocoronary bypass graft; Z95.5 Presence of coronary angioplasty implant and graft; Z98.890 Other specified postprocedural states
CPT/HCPCS: 75710; 36247; C1893; C1769; C1725 ×2; J3010; J1644 ×2; J3490; J2250; J2270; Q9967; 99152; 99153; A4606; G0500